=== PATIENT | female | born 1960 | race Caucasian/White ===

== ENCOUNTER 2019-12-27 14:24 | Emergency (ER) | payer BC ==
[2019-12-27 16:02] VITALS: BP 131/72
== END 2019-12-27 16:51 | disposition left against medical advice (07) ==
LOC: ER 14:24
DX: Z53.21 Procedure and treatment not carried out due to patient leaving prior to being seen by health care provider (principal); R06.02 Shortness of breath

== ENCOUNTER → 2019-12-28 | Outpatient (CLI) | payer BC ==
[2019-12-28 11:28] VITALS: BP 147/85
--- NOTE | 2019-12-28 11:28 | ER RDC ASSESSMENT REPORT ---
Intake - In the Last 14 days Have you traveled outside [place]?: No Have you been in close contact with someone CONFIRMED: No Worked in Healthcare?: No - Symptoms Subjective Fever([place] feverish): Yes Chills: No Muscule Aches: No Runny Nose: No Sore Throat: No Cough (New or worsening chronic cough): Yes --How many day(s)?: Moist nonproductive cough Shortness of breath: Yes Nausea or Vomiting: No Headache: No Abdominal Pain: No Diarrhea(3 or more loose stools in last 24 hours): No - Do you have any of the following Chronic lung disease: Asthma or emphysema or COPD: Yes Chronic Lung Disease Comment: History of asthma Cystic Fibrosis: No Diabetes: No High Blood Pressure: No Cardiovascular Disease: No Chronic Kidney Disease: No Chronic Liver Disease: No Chronic blood disorder like Sickle Cell Disease: No Weak immune system due to disease or medication: No Neurologic condition that limits movement: No Developmental delay - Moderate to Severe: No Recent (within past 2 weeks) or current : No Morbid Obesity (>100 pounds over ideal weight): No Obesity Comment: Height 4 feet 11 inches weight 180 pounds - Objective Temperature: 98.5 F Pulse Rate: 87 Respiratory Rate: 20 Blood Pressure: 147/85 O2 Sat by Pulse Oximetry: 95 Objective: Given above, testing performed: If Testing Performed: Test Specimen Type Sent to General - General Information source: Patient Notes: Patient here at [facility] for COVID testing has been having on and off cough for a month in the past 2 weeks worsening had started Z-Niko last week's finished Wednesday started on Levaquin on Wednesday continues with cough and shortness of breath chest x-ray done a month ago patient reports was negative smokes a half a pack of cigarettes per day denies a fever in the last 72 hours. Has inhalers and uses a nebulizer every 4 hours as instructed used once this morning patient has been in contact with PCP Dr. Barragan in [place] - Related Data Allergies/Adverse Reactions: aspirin Allergy (Verified 02/07/16 14:12) Past Medical History - Social History Smoking Status: Current Every Day Smoker - Smokes a half a pack a day Cigarette use (# per day): Yes - Half a pack a day Smoking Education Provided: Yes Family History: Reviewed & Not Pertinent - Past Medical History Cardiac Medical History: Reports: Hx Hypertension Pulmonary Medical History: Reports: Hx Asthma Past Surgical History: Reports: Hx Section, Hx Hysterectomy Physical Exam - General General appearance: Appears well, Alert In distress: None Notes: PHYSICAL EXAMINATION: GENERAL: Well-appearing and in no acute distress. HEAD: Atraumatic, normocephalic. EYES: sclera anicteric, conjunctiva are normal. ENT: nares patent. Moist mucous membranes. NECK: Normal range of motion, supple without lymphadenopathy LUNGS: CTAB and equal. No wheezes rales or rhonchi. Resp even and unlabored. Lung sounds clear. Occassional Moist non produ HEART: Regular rate and rhythm without murmurs ABDOMEN: Soft, nontender, normal bowel sounds, no guarding. EXTREMITIES: No cyanosis. NEUROLOGICAL: Normal speech. PSYCH: Normal mood, normal affect. SKIN: Warm, Dry, normal turgor, Diagnostic Results Laboratory Results: Informed of negative rapid strep and negative rapid flu results pending strep culture pending COVID testing results. Provided instructions regarding COVID to include: As a person under investigation for Covid 19, the [place] department of Health and Human Services, division of public health advises you to adhere to the following guidance until your test results are reported to you. If your test result is positive, you will receive additional information from your provider and your local health department at that time. Remain at home until you are cleared by the health provider or public health authorities. Keep a log of visitors to your home, notify any visitors to your home of your isolation status. If you plan to move to a new address or leave the [facility], notify the local health department in your [facility]. Call your doctor or seek care if you have an urgent medical need. Before seeking medical care, call ahead to get instructions from the provider before arriving at the medical office clinic or hospital. Notify them that you are being tested for the virus that causes Covid 19 so that arrangements can be made, as necessary, to prevent transmission to others in the healthcare setting. Next, notify the local health department in your county. If a medical emergency arises and you need to call 911, inform the first responders that you are being tested for the virus that causes Covid 19. Next, notify the local health department in your county. Patient Education/Counseling Counseling/Education: Patient presents with upper respiratory symptoms worrisome for possible Covid 19. Patient does not have emergency worring symptoms such as difficulty breathing, shortness of breath, chest pain, pressure, confusion or cyanosis. Patient appears suitable for discharge. Patient instructed for follow up with PCP in [facility]. To ED for persisent or worsening symtoms. Patient's vital signs are stable and patient is nontoxic in appearance. Good return precautions have been discussed with patient, patient verbalized understanding and is agreeable with discharge plan of care at this time. [facility] Discharge - Discharge Clinical Impression: COVID -19 SCREENING Condition: Stable Disposition: Home; Selfcare
[2019-12-28 12:31] LABS: A TYPE INFLUENZA AG NEGATIVE (NEGATIVE); B INFLUENZA AG NEGATIVE (NEGATIVE)
== END ==
LOC: RDC 10:51
PROVIDERS: ATTEND Nurse Practitioner Family
DX: Z20.828 Contact with and (suspected) exposure to other viral communicable diseases (principal); R50.9 Fever, unspecified; R05 Cough; R06.02 Shortness of breath; J45.909 Unspecified asthma, uncomplicated; F17.210 Nicotine dependence, cigarettes, uncomplicated; I10 Essential (primary) hypertension
CPT/HCPCS: 36415; 87070; 87880; 87635; 87804; C9803; 99201